=== PATIENT | male | born 1975 | race Caucasian/White ===

== ENCOUNTER 2017-09-18 02:10 | Emergency (ER) | payer SELFPAY ==
--- NOTE | 2017-09-18 02:58 | ER Document Report ---
ED General - General Chief Complaint: ETOH Abuse Stated Complaint: POSSIBLE ETOH Time Seen by Provider: 09/18/17 02:47 Notes: Patient is a 42-year-old male who presents with complaints of being found unresponsive in the hogue the hallway. He does admit to drinking heavily tonight. He has a friend at bedside who says he thinks he had a seizure. The friend actually did not witness a seizure. The friend says he thinks had a seizure because the patient is now not acting "himself. He thinks he is postictal. The patient has no history of seizures. The friend that is saying is all this claims to be an emergency medicine physician. The friend himself is also intoxicated with alcohol. Asked the patient how much he drank he says he appears primarily not sure. Iron Piler report was that he drank over 20 beers. When asked the friend how much the patient drank he says "massive amounts". He says they also drink liquor. Patient complains of any pain or injuries. He denies being on any medications. He says he is otherwise healthy. I asked the patient if he remembers anything for passing out. Patient says he remembers drinking large amounts and then laying down on the floor and passing out. Past Medical History - Social History Smoking Status: Unknown if Ever Smoked Frequency of alcohol use: Occasional Drug Abuse: None Family History: Reviewed & Not Pertinent Review of Systems - Review of Systems Notes: My Normal Review Basic REVIEW OF SYSTEMS: CONSTITUTIONAL : Denies fever, chills, or sweats. Denies recent illness. EENT: Denies eye, ear, throat, or mouth pain or symptoms. Denies nasal or sinus congestion. CARDIOVASCULAR: Denies chest pain. RESPIRATORY: Denies cough, cold, or chest congestion. Denies shortness of breath, difficulty breathing, or wheezing. MUSCULOSKELETAL: Denies neck or back pain or joint pain or swelling. SKIN: Denies rash or skin lesions. NEUROLOGICAL: Unresponsive after drinking alcohol.. Denies headache. Denies weakness or paralysis or loss of use of either side. Denies problems with gait or speech. Denies sensory or motor loss. ALL OTHER SYSTEMS REVIEWED AND NEGATIVE. Physical Exam - Vital signs Vitals: Temp Pulse Resp BP Pulse Ox 97.3 F 81 18 112/71 93 09/18/17 02:24 09/18/17 02:24 09/18/17 02:24 09/18/17 02:24 09/18/17 02:24 - Notes Notes: General Appearance: Well nourished, alert, cooperative, no acute distress, no obvious discomfort. Smells strongly of alcohol. Vitals: reviewed, See vital signs table. Head: no swelling or tenderness to the head Eyes: PERRL, EOMI, Conjuctiva clear Mouth: No decreasd moisture. No tongue biting. Throat: No tonsillar inflammation, No airway obstruction, No lymphadenopathy Neck: Supple, no neck tenderness Lungs: No wheezing, No rales, No rhonci, No accessory muscle use, good air exchange bilaterally. Heart: Normal rate, Regular rythm, No murmur, no rub Abdomen: Normal BS, soft, No rigidity, No abdominal tenderness, No guarding, no rebound, no abdominal masses, no organomegaly Extremities: strength 5/5 in all extremities, good pulses in all extremities, no swelling or tenderness in the extremities, no edema. Skin: warm, dry, appropriate color, no rash Neuro: speech clear, oriented x 3, inoxicated affect, responds appropriately to questions. Cranial nerves II through XII are intact. Patient does have some lateral gaze nystagmus when checking extraocular motion. This is fatigable. No weakness in the arms or legs. Good distal sensation. Gait is just slightly guarded. Course - Re-evaluation Re-evalutation: 09/18/17 02:59 Of note: The patient's friend who claims he is an ER physician was very adamant about his diagnosis that the patient had a seizure even though no one witnessed any seizure-like activity. During my physical exam patient's friend continually interrupted me. Even tried to tell me that the patient obviously had a seizure because she has lateral gaze nystagmus. I informed the patient's friend that since he is a physician he should be aware that lateral gaze nystagmus occurs whenever you are intoxicated with alcohol. I eventually told the patient's friends that it is more appropriate that if he leaves the workup and diagnosis to me being that he is indeed drunk and he should not be trying to treat or diagnose people while intoxicated. Patient's friend then said he understood and apologized. 09/18/17 04:26 CT scan of the head and neck were obtained because patient was found unresponsive on the floor while intoxicated. The CT scans were negative for any acute injury. Patient now has a third friend at bedside who is sober. His name is Juan Luis. He does agree that he will be driving both the individual's home. I explained to the patient and his friends do not suspect seizure being that he has no evidence of intraoral trauma or tongue biting, and he has no history of previous seizures. I suspect that he most likely passed out from being intoxicated being that his alcohol level was 323 from his blood draw here in the ER. Patient otherwise neurologically intact with exception of some slight intermittent slurring of speech from his alcohol intoxication. Patient will be discharged home but is encouraged to return to ER immediately for severe headaches, vomiting, or has any further concerns. Patient agrees with plan will be discharged home. Dictation of this chart was performed using voice recognition software; therefore, there may be some unintended grammatical errors. - Vital Signs Vital signs: Temp Pulse Resp BP Pulse Ox 97.3 F 81 18 112/71 93 09/18/17 02:24 09/18/17 02:24 09/18/17 02:24 09/18/17 02:24 09/18/17 02:24 - Laboratory Result Diagrams: 09/18/17 03:05 09/18/17 03:05 Laboratory results interpreted by me: 09/18/17 09/18/17 03:05 03:05 WBC 11.6 H Serum Alcohol 323 H* Discharge - Discharge Clinical Impression: Syncope Qualifiers: Syncope type: unspecified Qualified Code(s): R55 - Syncope and collapse Alcohol intoxication Qualifiers: Complication of substance-induced condition: with delirium Qualified Code(s): F10.921 - Alcohol use, unspecified with intoxication delirium Condition: Good Disposition: HOME, SELF-CARE Additional Instructions: Please avoid drinking large quantities of alcohol. Your CT scan of your head and neck were read as normal. Please have a low threshold to return to the ER immediately if you have vomiting, severe headaches, or feel confused or unwell. Forms: Return to Work
[2017-09-18 03:19] LABS: ABSOLUTE BASOPHILS # (AUTO) 0.1 10^3/uL (0.0-0.2); ABSOLUTE EOSINOPHILS # (AUTO) 0.1 10^3/uL (0.0-0.6); ABSOLUTE LYMPHOCYTES (AUTO) 2.8 10^3/uL (0.5-4.7); ABSOLUTE MONOCYTES (AUTO) 0.5 10^3/uL (0.1-1.4); ABSOLUTE NEUT (AUTO) 8.1 10^3/uL (1.7-8.2); BASOPHILS % (AUTO) 0.7 % (0-2); EOSINOPHILS % (AUTO) 1.1 % (0-6); HEMOGLOBIN 14.5 g/dL (13.5-17.0); HGB HCT DIFFERENCE 1.5; LYMPHOCYTES % (AUTO) 23.9 % (13-45); MEAN CORPUSCULAR HGB CONC 34.6 g/dL (32.0-36.0); MEAN CORPUSCULAR VOLUME 90 fl (80-97); MONOCYTES % (AUTO) 4.3 % (3-13); RED BLOOD COUNT 4.69 10^6/uL (4.35-5.55); RED CELL DISTRIBUTION WIDTH 13.1 % (11.5-14.0); WHITE BLOOD COUNT 11.6 10^3/uL (4.0-10.5)
[2017-09-18 03:32] LABS: ANION GAP 17 (5-19); BLOOD UREA NITROGEN 10 mg/dL (7-20); CALCIUM 8.6 mg/dL (8.4-10.2); CARBON DIOXIDE 22 mmol/L (22-30); CHLORIDE 104 mmol/L (98-107); CREATININE RESULT 0.85 mg/dL (0.52-1.25); GLUCOSE 93 mg/dL (75-110); MAGNESIUM 2.1 mg/dL (1.6-2.3); POTASSIUM 4.3 mmol/L (3.6-5.0); SODIUM 143.1 mmol/L (137-145)
[2017-09-18 03:42] LABS: ALCOHOL 323 mg/dL (NONE DETECTED)
--- NOTE | 2017-09-18 03:43 | RADIOLOGY REPORT (SQ) ---
EXAM DESCRIPTION: CT CERVICAL SPINE WITHOUT COMPLETED DATE/TIME: 09/18/2017 3:25 am REASON FOR STUDY: trauma COMPARISON: None. TECHNIQUE: Axial images acquired through the cervical spine without intravenous contrast. Images re viewed with lung, soft tissue and bone windows. Reconstructed coronal and sagittal MPR images review ed. Images stored on PACS. All CT scanners at this facility use dose modulation, iterative reconstruction, and/or weight based d osing when appropriate to reduce radiation dose to as low as reasonably achievable (ALARA). [facility]: Dose Right [facility]: CareDose [facility]: Dose Right [facility]: Teradose 4D [facility]: [employer] RADIATION DOSE: Up-to-date CT equipment and radiation dose reduction techniques were employed. CTDIv ol: 19.3 mGy. DLP: 454 mGy-cm. mGy. LIMITATIONS: None. FINDINGS: ALIGNMENT: Anatomic. MINERALIZATION: Normal. VERTEBRAL BODIES: No fractures or dislocation. Mild atlantoaxial osteoarthritis. DISCS: Mild disc desiccation between the C4 and C7 levels. Small C4-C5 disc bulge. FACETS, LATERAL MASSES, POSTERIOR ELEMENTS: No fractures. No dislocation. No acute findings. HARDWARE: None in the spine. VISUALIZED RIBS: No fractures. LUNG APICES AND SOFT TISSUES: No significant or acute findings. OTHER: No other significant finding. IMPRESSION: No acute findings. TECHNICAL DOCUMENTATION: JOB ID: [id number] Quality ID # [id number]: Final reports with documentation of one or more dose reduction techniques (e.g., Au tomated exposure control, adjustment of the mA and/or kV according to patient size, use of iterative reconstruction technique) 2010 [employer]- All Rights Reserved
--- NOTE | 2017-09-18 04:04 | RADIOLOGY REPORT (SQ) ---
EXAM DESCRIPTION: CT HEAD WITHOUT COMPLETED DATE/TIME: 09/18/2017 3:48 am REASON FOR STUDY: TRAUMA COMPARISON: None. TECHNIQUE: Axial images acquired through the brain without intravenous contrast. Images reviewed wi th bone, brain and subdural windows. Images stored on PACS. All CT scanners at this facility use dose modulation, iterative reconstruction, and/or weight based d osing when appropriate to reduce radiation dose to as low as reasonably achievable (ALARA). [facility]: Dose Right [facility]: CareDose [facility]: Dose Right [facility]: Teradose 4D [facility]: [employer] RADIATION DOSE: mGy. LIMITATIONS: None. FINDINGS: VENTRICLES: Normal size and contour. CEREBRUM: No masses. No hemorrhage. No midline shift. No evidence for acute infarction. Normal gra y/white matter differentiation. No areas of low density in the white matter. CEREBELLUM: No masses. No hemorrhage. No alteration of density. No evidence for acute infarction. EXTRAAXIAL SPACES: No fluid collections. No masses. ORBITS AND GLOBE: No intra- or extraconal masses. Normal contour of globe without masses. CALVARIUM: No fracture. PARANASAL SINUSES: No fluid or mucosal thickening. SOFT TISSUES: No mass or hematoma. OTHER: No other significant finding. IMPRESSION: NORMAL BRAIN CT WITHOUT CONTRAST. EVIDENCE OF ACUTE STROKE: NO. COMMENT: Quality ID # [id number]: Final reports with documentation of one or more dose reduction techniques (e.g., Automated exposure control, adjustment of the mA and/or kV according to patient size, use of iterative reconstruction technique) TECHNICAL DOCUMENTATION: JOB ID: [id number] [employer]- All Rights Reserved
[2017-09-18 04:44] VITALS: BP 106/54
== END 2017-09-18 04:40 | disposition home or self-care (01) ==
LOC: ER 02:10
DX: F10.121 Alcohol abuse with intoxication delirium (principal); Y90.8 Blood alcohol level of 240 mg/100 ml or more; R55 Syncope and collapse
CPT/HCPCS: 99284; 36415; 80307; 83735; 85025; 80048; 70450; 72125; L0120